=== PATIENT | male | born 1955 | race Caucasian/White ===

== ENCOUNTER 2017-10-18 10:33 | Observation (INO) ==
[2017-10-18] MEDS ORDERED: Levofloxacin 500 MG/100 ML 500 MG/100 ML BAG IVPB ONE (11:03)
[2017-10-18] MEDS ORDERED: *HR* Midazolam HCl 2 MG/2 ML VIAL ONE (11:12)
[2017-10-18] MEDS ORDERED: *HR* FentaNYL (PF) 100 MCG/2 ML VIAL ONE (11:12)
[2017-10-18] MEDS ORDERED: *HR* Propofol 200 MG/20 ML VIAL IVP ONE (11:12)
[2017-10-18] MEDS ORDERED: Plasma-Lyte A (PH 7.4) 1,000 ML IVC SCH (11:15)
[2017-10-18] MEDS ORDERED: *HR* Succinylcholine 200 MG/10 ML VIAL IVP ONE (11:21)
[2017-10-18] MEDS ORDERED: *HR* Rocuronium Bromide 50 MG/5 ML VIAL ONE (11:21)
[2017-10-18] MEDS ORDERED: Lidocaine -MPF 2% 2 ML VIAL ONE (11:21)
--- NOTE | 2017-10-18 12:07 | Anesthesia Evaluation PreOp ---
Date of Encounter: 10/18/17 Time of Encounter: 12:05 - Past History Planned Operation: TURP Cardiac History: HTN, Hyperlipidemia Pulmonary History: Denies Any Significant HX Other Medical History: Renal (BPH) Anesthesia History: No Prior Anesthetic Complications, Past Anesthesia (ankle sx ) Alcohol Use: none Drug use: none Medications and Allergies Atorvastatin Calcium [Atorvastatin Calcium] 80 mg PO HS 10/18/17 [History] Celecoxib [Celebrex] 200 mg PO DAILY 10/18/17 [History] Escitalopram [Lexapro] 20 mg PO DAILY 10/18/17 [History] FLUoxetine HCl [Prozac] 20 mg PO DAILY 10/18/17 [History] Gabapentin [Neurontin] 300 mg PO BID 10/18/17 [History] Ibuprofen [Motrin] 600 mg PO BID PRN 10/18/17 [History] Omeprazole [PriLOSEC] 20 mg PO DAILY 10/18/17 [History] Tamsulosin [Flomax] 0.4 mg PO DAILY 10/18/17 [History] Trazodone HCl [Trazodone HCl] 50 mg PO HS 10/18/17 [History] hydrOXYzine pamoate [HydrOXYzine Pamoate] 50 mg PO Q6H PRN 10/18/17 [History] hydroCHLOROthiazide [Hydrochlorothiazide] 25 mg PO DAILY 10/18/17 [History] levETIRAcetam [Keppra] 250 mg PO BID 10/18/17 [History] 3 Allergy/AdvReac Type Severity Reaction Status Date / Time acetaminophen AdvReac Itching Verified 10/18/17 11:21 codeine AdvReac Itching Verified 10/18/17 11:21 - Meds/Allergy Pre-op Review Medications Reviewed: Yes Allergies Reviewed: Yes Beta Blockers on Current Med List: No Anesthesia Results - Imaging EKG: report reviewed (NSR) Additional studies: Echo 2013: LVEF 60%, normal function Anesthesia Exam Selected Entries 10/18/17 11:05 Temperature 97.7 F Pulse Rate 93 Respiratory Rate 18 Blood Pressure 121/81 O2 Sat by Pulse Oximetry 92 Weight: 103kg NPO (# of Hours): 8 - HEENT Pupil (Motor): EOMI Mallampati: III Teeth: Poor dentition Oral Opening: Greater than 3 - AIRLINE MANAGERIAL SUPERVISOR LOC: Oriented AIRLINE MANAGERIAL SUPERVISOR Motor: Normal RUE, Normal LUE, Normal RLE, Normal LLE, Normal Face AIRLINE MANAGERIAL SUPERVISOR Sensory: Normal: RUE, LUE, RLE, LLE, Face - Cardiac Rhythm: Regular Murmur: None - Pulmonary Breath Sounds: bilateral Clear Respiratory Effort: Symmetrical Anesthesia Assess/Plan ASA Score: 2 Modified Becca Scale for Level of Consciousness: Cooperative, oriented, and tranquil Anesthetic Plan: General Monitoring Plan: Standard Monitors Recovery Plan: PACU (agrees to GA)
--- NOTE | 2017-10-18 12:36 | History & Physical Report ---
Date of Encounter: 10/18/17 Time of Encounter: 12:35 24 Hour HP Update - Instructions Instructions: If the History and Physical is less than 30 days old and was completed prior to A.M. admission and or procedure and has NOT been updated on calendar day of procedure please complete this update prior to performing procedure. - Update Patient reports changes in Medical Condition: No Changes in examination, assessment, or condition: No Changes in Medication: No Preop tests/diagnostics Reviewed: Yes Surgery Remains Indicated: Yes Consent for Planned Operative Procedure(s) Verified: Yes - Pre-Operative Checklist Preoperative Checklist Indicated: Yes Prophylactic Antibiotic Ordered: Yes Home Medications Include Beta Danyel: No Is VTE Prophylaxis Indicated?: Yes
[2017-10-18] MEDS ORDERED: Dexamethasone 4 MG/ML VIAL ONE (13:00)
[2017-10-18] MEDS ORDERED: Ondansetron 4 MG/2 ML VIAL ONE (13:00)
[2017-10-18] MEDS ORDERED: Ketorolac 30 MG/ML VIAL ONE (13:00)
[2017-10-18] MEDS ORDERED: MORPHINE SUL Oral CONC 10 MG/0.5 ML ORAL.SYG SL PRN (13:19)
[2017-10-18] MEDS ORDERED: Ondansetron 4 MG/2 ML VIAL IVP ONE (13:19)
[2017-10-18] MEDS ORDERED: *HR* OxyCODONE Immed Rel 5 MG TABLET PO PRN ×2 (13:19→20:15)
--- NOTE | 2017-10-18 13:38 | Operative Note ---
Date of procedure: 10/18/17 Pre-op diagnosis: Benign prostatic hyperplasia Post-op diagnosis: other Procedure: Transurethral resection of the prostate. Implants: [address]. Complications: No Anesthesia: KEERTHIA Surgeon: Josemanuel Brooks Was there an automotive parts counter assistant present: No Estimated blood loss (cc): 50 Specimen: prostate chips Condition: stable Disposition: PACU Procedure in Detail: INDICATIONS: Arnav is a 62 year old gentleman, who has BPH and incomplete bladder emptying. He has continued urinary symptoms despite being on medications. He wished to undergo a transurethral resection of prostate. He is aware of the risks of procedure including, but not limited to, bleeding, infection, injury to other structures, need for further procedures, incomplete bladder emptying, bladder neck contracture, urethral stricture, urinary incontinence, retrograde ejaculation, erectile dysfunction, and the risk of anesthesia. He is willing to proceed. DESCRIPTION OF PROCEDURE: After informed consent was obtained, the patient was brought back to the operating room and placed in supine position. Time-out was performed. General anesthesia was then administered and a laryngeal mask airway was placed. He was then placed in lithotomy position. His genitalia were prepped and draped in usual sterile fashion. The resector sheath was then introduced using the visual obturator to the urethra. The prostate showed lateral lobe hyperplasia. There was some enlargement of the median lobe. The ureteral orifices were in the normal orthotopic position. There is no bladder tumor. There were 2+ trabeculations. I then inserted the Cloud element with the Elliott knife. An incision was made at the 5:00 and 7:00 regions from the bladder neck down to the verumontanum. The Elliott knife was removed and the resecting loop was then introduced. The median lobe was taken down using electrocautery down to the level of the verumontanum. I then turned my attention to the left lateral lobe and this was resected away. Attention was then turned to the right lobe and this was resected away. I did perform a small amount of resection anteriorly as well. Once adequate resection was achieved, I then achieved hemostasis with electrocautery. All the TURP chips were irrigated out. I then confirmed hemostasis again. Once hemostasis was adequate, I removed the scope. The verumontanum and ureteral orifices were free of injury and left intact. A 22-Tr[place] three-way catheter was then placed , 60 mL was instilled in the balloon. The catheter was left on mild traction. Slow continuous bladder irrigation was started. The patient was then awakened from general anesthesia, brought to recovery room in good condition. All sponge, needle, and instrument counts were correct.
--- NOTE | 2017-10-18 14:17 | Anesthesia Evaluation Post Op ---
Date of Encounter: 10/18/17 Time of Encounter: 14:17 - Vital Signs Vital Signs: Vital Signs/O2 Sat, Most Current Temp Pulse Resp BP Pulse Ox 97.0 F L 77 16 113/77 93 10/18/17 14:08 10/18/17 14:08 10/18/17 14:08 10/18/17 14:08 10/18/17 14:08 - Lungs Lungs: Clear Ascult./Percussion - Airway Airway: Non-obstructed - Cardiovascular Regular Rate - Mental Status Mental Status: Alert & Oriented, Answers Appropriately - Pain Pain Scale: 0 Pain Scale used: Numeric (1 - 10) - Nausea Vomiting Nausea Vomiting: Not Present - Hydration Hydration: NPO - Discharge PostOp Status: Transfer Patient to floor
[2017-10-18 20:54] LABS: Basophils % 0.1 %; Eosinophils % 0.1 %; Hematocrit 50.5 % (37.5-50.1); Hemoglobin 16.4 g/dL (12.9-16.9); Immature Granulocytes % 0.4 % (0-4); Lymphocytes # 1.1 K/mcL (0.6-4.6); Lymphocytes % 15.2 %; Mean Corpuscular HGB Conc 32.5 g/dL (31.6-35.5); Mean Corpuscular Hemoglobin 29.1 pg (28.0-33.3); Mean Corpuscular Volume 89.7 fL (83.0-100.0); Mean Platelet Volume 11.5 fL (9.4-12.4); Monocytes # 0.1 K/mcL (0.0-1.3); Monocytes % 1.4 %; Platelet Count 205 K/mcL (140-400); Red Blood Count 5.63 M/mcL (4.19-5.50); Red Cell Distribution Width 14.6 % (11.5-14.5); Segmented Neutrophils % 82.8 %
[2017-10-18 21:10] LABS: Alanine Aminotransferase 27 Units/L (7-52); Albumin/Globulin Ratio 1.8 (1.1-2.2); Alkaline Phosphatase 72 Units/L (34-104); Aspartate Amino Transferase 19 Units/L (13-39); BUN/Creatinine Ratio 13 (6-26); Bilirubin,Total 0.9 mg/dL (0.3-1.0); Blood Urea Nitrogen 13 mg/dL (8-23); Calcium 9.1 mg/dL (8.6-10.3); Carbon Dioxide 26 mEq/L (23-29); Chloride 104 mEq/L (98-107); Globulin 2.2 g/dL (2.4-3.5); Glucose 177 mg/dL (70-105); Osmolality,Calculated 286 (280-300); Potassium 4.8 mEq/L (3.5-5.1); Sodium 136 mEq/L (136-145); Total Protein 6.2 g/dL (6.4-8.9); eGFR For African Americans > 60 (> 60); eGFR For Non-African Americans > 60 (> 60)
[2017-10-19] MEDS ORDERED: Acetaminophen 325 MG TABLET PO PRN (07:06)
[2017-10-19] MEDS ORDERED: *HR* OxyCODONE Immed Rel 5 MG TABLET PO PRN ×2 (07:06)
[2017-10-19] MEDS ORDERED: hydrOXYzine pamoate 25 MG CAPSULE PO PRN (07:06)
[2017-10-19] MEDS ORDERED: *HR* Promethazine 25 MG/ML VIAL IVP PRN (07:06)
[2017-10-19] MEDS ORDERED: Naloxone 0.4 MG/ML INJ IVP PRN ×2 (07:06)
[2017-10-19] MEDS ORDERED: *HR* HYDROcodone/Acet 5/325 mg TABLET PO PRN (07:06)
[2017-10-19] MEDS ORDERED: Ondansetron 4 MG/2 ML VIAL IVP PRN (07:06)
--- NOTE | 2017-10-19 07:30 | Urology Progress Note ---
Date of Encounter: 10/19/17 Time of Encounter: 07:25 - Assessment and Plan (1) BPH w urinary obs/LUTS Current Visit: Yes Status: Acute Assessment and plan: 62-year-old man status post TURP. His urine is somewhat bloody today. I will wean off the CBI slowly. I will keep him as an inpatient today. Anticipate catheter removal and discharge tomorrow. Progress Note Narrative: Doing well today. Pain is controlled. Urine is light pink. Objective Initial Vital Signs Temp Pulse Resp BP Pulse Ox 97.7 F 93 18 121/81 92 10/18/17 10:55 10/18/17 10:55 10/18/17 10:55 10/18/17 10:55 10/18/17 10:55 - General physical appearance Present: well developed, well nourished, no distress - Respiratory Present: normal expansion - Abdomen Present: soft - Genitourinary Urine Appearance: Present: Hematuria (Light pink off cbi.) - Labs 10/18/17 20:33 10/18/17 20:33 Diabetes panel 10/18/17 Range/Units 20:33 Sodium 136 (136-145) mEq/L Potassium 4.8 (3.5-5.1) mEq/L Chloride 104 (98-107) mEq/L Carbon Dioxide 26 (23-29) mEq/L BUN 13 (8-23) mg/dL Creatinine 1.02 (0.70-1.30) mg/dL Glucose 177 H (70-105) mg/dL Calcium 9.1 (8.6-10.3) mg/dL AST 19 (13-39) Units/L ALT 27 (7-52) Units/L Alkaline Phosphatase 72 (34-104) Units/L Albumin 4.0 (3.5-5.7) g/dL Calcium panel 10/18/17 Range/Units 20:33 Calcium 9.1 (8.6-10.3) mg/dL Albumin 4.0 (3.5-5.7) g/dL Pituitary panel 10/18/17 Range/Units 20:33 Sodium 136 (136-145) mEq/L Potassium 4.8 (3.5-5.1) mEq/L Chloride 104 (98-107) mEq/L Carbon Dioxide 26 (23-29) mEq/L BUN 13 (8-23) mg/dL Creatinine 1.02 (0.70-1.30) mg/dL Glucose 177 H (70-105) mg/dL Calcium 9.1 (8.6-10.3) mg/dL Adrenal panel 10/18/17 Range/Units 20:33 Sodium 136 (136-145) mEq/L Potassium 4.8 (3.5-5.1) mEq/L Chloride 104 (98-107) mEq/L Carbon Dioxide 26 (23-29) mEq/L BUN 13 (8-23) mg/dL Creatinine 1.02 (0.70-1.30) mg/dL Glucose 177 H (70-105) mg/dL Calcium 9.1 (8.6-10.3) mg/dL Total Bilirubin 0.9 (0.3-1.0) mg/dL AST 19 (13-39) Units/L ALT 27 (7-52) Units/L Alkaline Phosphatase 72 (34-104) Units/L Albumin 4.0 (3.5-5.7) g/dL - VTE Documentation of Mechanical Device: Intermittent pneumatic compression device Consult Discharge Plan - Plan Referrals: Tasha Nolasco, CERAMIC TILE SETTER [Primary Care Provider] -
[2017-10-19] MEDS: 0.9 % Sodium Chloride 1,000 ML IVC SCH ×2 (08:29→17:00)
[2017-10-19] MEDS: hydroCHLOROthiazide 25 MG TABLET PO SCH (08:29)
[2017-10-19] MEDS: levETIRAcetam 250 MG TABLET PO SCH ×2 (08:30→20:49)
[2017-10-19] MEDS: FLUoxetine 20 MG CAPSULE PO SCH (08:30)
[2017-10-19] MEDS: Gabapentin 300 MG CAPSULE PO SCH ×2 (08:30→20:49)
[2017-10-19] MEDS ORDERED: traZODone 50 MG TABLET PO SCH (21:00)
[2017-10-20] MEDS: 0.9 % Sodium Chloride 1,000 ML IVC SCH (03:57)
--- NOTE | 2017-10-20 06:55 | Discharge Summary ---
Orders not resulted at time of discharge: Pending orders 10/18/17 13:42 Surgical Pathology [PTH] Routine Date of Encounter: 10/20/17 Time of Encounter: 06:54 - Discharge Diagnosis (1) BPH w urinary obs/LUTS Priority: Primary Status: Acute - Hospital Course Hospital course: Mr. Fuller is a 62 year old male who has a history of BPH and lower urinary tract symptoms. On 10/18/2016 he underwent a transurethral resection of prostate. He did well after surgery. His urine was slightly bloody on postoperative day #1. He remained in the hospital until postoperative day #2. His catheter was removed and he was able to urinate. He was discharged home later that day. - Time Spent with Patient Total time spent providing and/or coordinating discharge services: Less than 30 minutes - Discharge Medications Prescriptions: HYDROcodone/Acet 5/325 mg [[place] 5-325 mg] 1 tab PO Q6HR PRN 4 Days #15 tablet PRN Reason: Moderate Pain Docusate [Colace] 100 mg PO BID #60 capsule Home Medications: Atorvastatin Calcium 80 mg PO HS 10/18/17 [History] Celecoxib [Celebrex] 200 mg PO DAILY 10/18/17 [History] Escitalopram [Lexapro] 20 mg PO DAILY 10/18/17 [History] FLUoxetine HCl [Prozac] 20 mg PO DAILY 10/18/17 [History] Gabapentin [Neurontin] 300 mg PO BID 10/18/17 [History] Ibuprofen [Motrin] 600 mg PO BID PRN 10/18/17 [History] Omeprazole [PriLOSEC] 20 mg PO DAILY 10/18/17 [History] Tamsulosin [Flomax] 0.4 mg PO DAILY 10/18/17 [History] Trazodone HCl 50 mg PO HS 10/18/17 [History] hydrOXYzine pamoate [HydrOXYzine Pamoate] 50 mg PO Q6H PRN 10/18/17 [History] hydroCHLOROthiazide [Hydrochlorothiazide] 25 mg PO DAILY 10/18/17 [History] levETIRAcetam [Keppra] 250 mg PO BID 10/18/17 [History] Docusate [Colace] 100 mg PO BID #60 capsule 10/20/17 [Rx] HYDROcodone/Acet 5/325 mg [[place] 5-325 mg] 1 tab PO Q6HR PRN 4 Days #15 tablet 10/20/17 [Rx] Allergies/Adverse Reactions: 3 Allergy/AdvReac Type Severity Reaction Status Date / Time acetaminophen AdvReac Itching Verified 10/18/17 11:21 codeine AdvReac Itching Verified 10/18/17 11:21 Date of admission: 10/19/17 14:17 Primary care physician: Tasha Nolasco, ENERGY RISK MANAGEMENT ANALYST Discharging clinician: Josemanuel Brooks Anticipated date of discharge: 10/20/17 Exam Initial Vital Signs Temp Pulse Resp BP Pulse Ox 97.7 F 93 18 121/81 92 10/18/17 10:55 10/18/17 10:55 10/18/17 10:55 10/18/17 10:55 10/18/17 10:55 - General physical appearance Present: well developed, well nourished, no distress - Eyes Present: normal ocular movement. Absent: icteric - ENT Present: normal nares - Neck Present: trachea midline - Respiratory Present: normal respiratory effort - Cardiovascular Cardiovascular exam IM: RRR - Abdomen Abdomen: Present: soft - Genitourinary other (Urine is clear to light pink.) - Integumentary Present: no rash - Patient Status Disposition: Home, Self-Care Condition: Good Functional capacity at discharge: independent ambulation Overall status at discharge: patient is progressing back to baseline - Discharge Instructions Follow Up With: Josemanuel Brooks MD [Partnered Physician] - (2 weeks with Post void residual.) Additional Instructions: 1. No heavy lifting greater than 20 pounds x2 weeks. 2. Okay to tub bathe. 3. May shower tomorrow. 4. He should follow up in 2 weeks for postoperative check. 5. He should return for any fevers, chills, nausea, vomiting, or significant hematuria. 6. Please provide a work excuse for one week off. 7. He should return to emergency room or the office if he is unable to urinate. - Diet and Activity Activity: increase activity as tolerated Diet: advance to your usual diet - VTE Documentation of Mechanical Device: Intermittent pneumatic compression device
[2017-10-20 07:24] VITALS: BP 147/85
[2017-10-20] MEDS: Gabapentin 300 MG CAPSULE PO SCH (09:27)
[2017-10-20] MEDS: FLUoxetine 20 MG CAPSULE PO SCH (09:27)
[2017-10-20] MEDS: levETIRAcetam 250 MG TABLET PO SCH (09:27)
[2017-10-20] MEDS: hydroCHLOROthiazide 25 MG TABLET PO SCH (09:28)
== END 2017-10-20 13:59 | disposition home or self-care (01) ==
LOC: SAMDAY 10:33 → 3BNU 10:33
PROVIDERS: ADMIT Urology; ATTEND Urology
PROC: UROTURP (2017-10-18 13:40)

== ENCOUNTER 2019-09-07 11:35 | Inpatient (IN) ==
[2019-09-07] MEDS ORDERED: CeFAZolin Syr 2,000MG/20 ML 2,000 MG/20 ML SYRINGE IVPB ONE (12:02)
[2019-09-07] MEDS ORDERED: Ringers Solution, Lactated 1,000 ML IVC SCH ×2 (12:15→18:33)
[2019-09-07] MEDS ORDERED: Lidocaine 1% 20 ML MDV ONE (12:43)
[2019-09-07] MEDS ORDERED: Bupivacaine/EPI 1:200k 0.5%PF 30 ML VIAL ONE (12:55)
[2019-09-07] MEDS ORDERED: Dexamethasone 4 MG/ML VIAL ONE (13:04)
[2019-09-07] MEDS ORDERED: Ondansetron 4 MG/2 ML VIAL ONE (13:04)
[2019-09-07] MEDS ORDERED: Lidocaine -MPF 2% 2 ML VIAL ONE (13:06)
[2019-09-07] MEDS ORDERED: Ropivacaine/PF 0.5% 30 ML VIAL ONE (13:44)
[2019-09-07] MEDS ORDERED: *HR* Midazolam HCl 2 MG/2 ML VIAL ONE (13:45)
[2019-09-07] MEDS ORDERED: *HR* FentaNYL (PF) 100 MCG/2 ML VIAL ONE (13:46)
[2019-09-07] MEDS ORDERED: *HR* OxyCODONE Immed Rel 5 MG TABLET PO PRN (13:59)
[2019-09-07] MEDS ORDERED: Ondansetron 4 MG/2 ML VIAL IVP PRN (13:59)
[2019-09-07] MEDS ORDERED: ceFAZolin 2,000 MG in 0.9 % Sodium Chloride 100 ML IVPB SCH (16:00)
[2019-09-07] MEDS ORDERED: D5% in Water 1,000 ML IVC PRN ×2 (17:25→18:33)
[2019-09-07] MEDS ORDERED: Dextrose Gel 15 GM/37.5 ML TUBE PO PRN ×4 (17:25→18:33)
[2019-09-07] MEDS ORDERED: *HR* Dextrose 50 % in Water (Syg) 50 ML SYRINGE IVP PRN ×2 (17:25→18:33)
[2019-09-07] MEDS ORDERED: levETIRAcetam 250 MG TABLET PO SCH (18:00)
[2019-09-07] MEDS: Gabapentin 300 MG CAPSULE PO SCH (20:53)
[2019-09-07] MEDS: traZODone 50 MG TABLET PO SCH (20:53)
[2019-09-07] MEDS: ceFAZolin 2,000 MG in 0.9 % Sodium Chloride 100 ML IVPB SCH (20:54)
[2019-09-07] MEDS: Ondansetron 4 MG/2 ML VIAL IVP PRN (20:55)
[2019-09-07] MEDS ORDERED: Gabapentin 300 MG CAPSULE PO SCH (21:00)
[2019-09-07] MEDS ORDERED: traZODone 50 MG TABLET PO SCH (21:00)
[2019-09-07] MEDS: *HR* OxyCODONE Immed Rel 5 MG TABLET PO PRN (23:27)
[2019-09-08] MEDS: *HR* OxyCODONE Immed Rel 5 MG TABLET PO PRN ×3 (06:06→21:53)
[2019-09-08] MEDS: levETIRAcetam 250 MG TABLET PO SCH ×2 (06:06→18:18)
[2019-09-08] MEDS: ceFAZolin 2,000 MG in 0.9 % Sodium Chloride 100 ML IVPB SCH (06:07)
[2019-09-08] MEDS: Ondansetron 4 MG/2 ML VIAL IVP PRN (06:08)
[2019-09-08] MEDS ORDERED: Insulin LISPRO 300 UNITS/3 ML VIAL SQ SCH (07:30)
[2019-09-08] MEDS ORDERED: *HR* Metformin 500 MG TABLET PO SCH (08:00)
[2019-09-08] MEDS: Insulin LISPRO 300 UNITS/3 ML VIAL SQ SCH ×3 (08:31→16:14)
[2019-09-08] MEDS: *HR* Metformin 500 MG TABLET PO SCH (08:42)
[2019-09-08] MEDS: Gabapentin 300 MG CAPSULE PO SCH ×2 (08:43→21:53)
[2019-09-08] MEDS: hydroCHLOROthiazide 25 MG TABLET PO SCH (08:44)
[2019-09-08] MEDS: FLUoxetine HCl Oral Soln 20 MG/5 ML UDC PO SCH (08:44)
[2019-09-08] MEDS ORDERED: hydroCHLOROthiazide 25 MG TABLET PO SCH (09:00)
[2019-09-08] MEDS ORDERED: FLUoxetine HCl Oral Soln 20 MG/5 ML UDC PO SCH (09:00)
[2019-09-08] MEDS: traZODone 50 MG TABLET PO SCH (21:53)
[2019-09-09] MEDS: Acetaminophen 325 MG TABLET PO PRN (00:48)
[2019-09-09] MEDS: levETIRAcetam 250 MG TABLET PO SCH ×2 (05:44→18:09)
[2019-09-09] MEDS: Insulin LISPRO 300 UNITS/3 ML VIAL SQ SCH (09:13)
[2019-09-09] MEDS: hydroCHLOROthiazide 25 MG TABLET PO SCH (09:16)
[2019-09-09] MEDS: *HR* Metformin 500 MG TABLET PO SCH (09:16)
[2019-09-09] MEDS: Gabapentin 300 MG CAPSULE PO SCH ×2 (09:16→20:39)
[2019-09-09] MEDS: FLUoxetine HCl Oral Soln 20 MG/5 ML UDC PO SCH (09:17)
[2019-09-09] MEDS: *HR* Heparin 5,000 UNIT/ML VIAL SQ SCH ×3 (12:36→20:39)
[2019-09-09] MEDS: *HR* OxyCODONE Immed Rel 5 MG TABLET PO PRN (12:39)
[2019-09-09] MEDS: traZODone 50 MG TABLET PO SCH (20:39)
[2019-09-10] MEDS: Acetaminophen 325 MG TABLET PO PRN (00:29)
[2019-09-10] MEDS: levETIRAcetam 250 MG TABLET PO SCH ×2 (05:38→18:34)
[2019-09-10] MEDS: *HR* Heparin 5,000 UNIT/ML VIAL SQ SCH ×3 (05:38→20:55)
[2019-09-10] MEDS: *HR* Metformin 500 MG TABLET PO SCH (09:24)
[2019-09-10] MEDS: hydroCHLOROthiazide 25 MG TABLET PO SCH (09:25)
[2019-09-10] MEDS: Gabapentin 300 MG CAPSULE PO SCH ×2 (09:25→20:55)
[2019-09-10] MEDS: FLUoxetine HCl Oral Soln 20 MG/5 ML UDC PO SCH (09:25)
[2019-09-10] MEDS: *HR* OxyCODONE Immed Rel 5 MG TABLET PO PRN (18:34)
[2019-09-10] MEDS: traZODone 50 MG TABLET PO SCH (20:55)
[2019-09-11] MEDS: levETIRAcetam 250 MG TABLET PO SCH (05:07)
[2019-09-11] MEDS: *HR* OxyCODONE Immed Rel 5 MG TABLET PO PRN (05:07)
[2019-09-11] MEDS: *HR* Heparin 5,000 UNIT/ML VIAL SQ SCH (05:07)
[2019-09-11 05:20] LABS: Hematocrit 41.7 % (37.5-50.1); Hemoglobin 14.3 g/dL (12.9-16.9); Mean Corpuscular HGB Conc 34.3 g/dL (31.6-35.5); Mean Corpuscular Hemoglobin 31.4 pg (28.0-33.3); Mean Corpuscular Volume 91.6 fL (83.0-100.0); Mean Platelet Volume 10.9 fL (9.4-12.4); Platelet Count 217 K/mcL (140-400); Red Blood Count 4.55 M/mcL (4.19-5.50); Red Cell Distribution Width 13.1 % (11.5-14.5); White Blood Count 5.1 K/mcL (4.3-11.1)
[2019-09-11 05:35] LABS: Bilirubin,Urine Negative (Negative); Blood,Urine Negative (Negative); Clarity,Urine Clear (Clear); Color,Urine Yellow (Yellow); Glucose,Urine (UA) Normal (Normal); Ketones,Urine Negative (Negative); Leukocyte Esterase,Urine Negative (Negative); Nitrite,Urine Negative (Negative); Protein,Urine Negative (Neg-Trace); Specific Gravity,Urine 1.013 (1.010-1.025); Urobilinogen,Urine Normal (Normal)
[2019-09-11 05:40] LABS: BUN/Creatinine Ratio 21 (6-26); Blood Urea Nitrogen 21 mg/dL (8-23); Calcium 9.7 mg/dL (8.6-10.3); Carbon Dioxide 31 mEq/L (23-29); Chloride 96 mEq/L (98-107); Glucose 108 mg/dL (70-105); Osmolality,Calculated 288 (280-300); Potassium 3.3 mEq/L (3.5-5.1); Sodium 137 mEq/L (136-145); eGFR For African Americans > 60 (> 60); eGFR For Non-African Americans > 60 (> 60)
[2019-09-11 07:12] VITALS: BP 133/86
[2019-09-11] MEDS: FLUoxetine HCl Oral Soln 20 MG/5 ML UDC PO SCH (07:45)
[2019-09-11] MEDS: Gabapentin 300 MG CAPSULE PO SCH (07:45)
[2019-09-11] MEDS: hydroCHLOROthiazide 25 MG TABLET PO SCH (07:45)
[2019-09-11] MEDS: *HR* Metformin 500 MG TABLET PO SCH (07:46)
== END 2019-09-11 11:23 | DRG 493 ==
LOC: SAMDAY 11:35 → 3NENU 18:33
PROVIDERS: ADMIT Podiatrist; ATTEND Podiatrist